=== PATIENT | female | born 1945 | race Caucasian/White ===

== ENCOUNTER → 2016-09-29 | Outpatient (CLI) | payer OTHER, MEDICARE | LOC: BHFA 14:30 | PROVIDERS: ATTEND Internal Medicine Cardiovascular Disease | DX: I48.91 Unspecified atrial fibrillation (principal) ==

== ENCOUNTER → 2017-02-18 | Outpatient (CLI) | payer OTHER, MEDICARE | LOC: FIMAGING 15:33 | PROVIDERS: ATTEND Family Medicine | DX: Z12.31 Encounter for screening mammogram for malignant neoplasm of breast (principal); Z80.3 Family history of malignant neoplasm of breast | CPT/HCPCS: G0202 ==

== ENCOUNTER → 2017-04-21 | Outpatient (CLI) | payer OTHER, MEDICARE | LOC: FIMAGING 14:05 | PROVIDERS: ATTEND Family Medicine | DX: Z13.820 Encounter for screening for osteoporosis (principal); M81.0 Age-related osteoporosis without current pathological fracture; Z79.01 Long term (current) use of anticoagulants ==

== ENCOUNTER 2017-10-11 04:16 | Observation (INO) | payer OTHER, MEDICARE ==
[2017-10-11] MEDS ORDERED: HYDROmorphONE/DILAUDID 1 MG/ML INJ IVP ONE (04:17)
[2017-10-11] MEDS ORDERED: NS 1,000 ML IV ONE (04:17)
[2017-10-11] MEDS ORDERED: ONDANSETRON 4 MG/2 ML VIAL IVP ONE (04:17)
--- NOTE | 2017-10-11 04:17 | EDPHY ---
H & P HPI/ROS: HPI CHIEF COMPLAINT: Abdominal pain, nausea, vomiting HISTORY OF PRESENT ILLNESS: Patient is a 71-year-old female she has a history of small-bowel obstructions, extensive abdominal surgery from a blood clot to her large intestines with most of her large intestines removed, hysterectomy, she presents emergency room with abdominal bloating and abdominal discomfort with associated nausea but no vomiting since around 630 last night. She states her entire abdomen is bloated. She feels like she may have another bowel obstruction. She has had decreased bowel movements with hard stool. She decided come the emergency room if she is having ongoing abdominal bloating and discomfort. Denies any fever, denies chest pain or shortness of breath. Main complaint abdominal pain, abdominal bloating and nausea. Past Medical History: SBO Past Surgical History: History of colectomy, hysterectomy, blood clot to intestines. Social History: Denies drugs alcohol tobacco Family History: Noncontributory ROS REVIEW OF SYSTEMS: A comprehensive 10 point review of systems is otherwise negative aside from elements mentioned in the history of present illness. Exam Constitutional triage nursing summary reviewed, vital signs reviewed, awake/ alert. Eyes normal conjunctivae and sclera, EOMI, PERRLA. HENT normal inspection, atraumatic, moist mucus membranes, no epistaxis, neck supple/ no meningismus, no raccoon eyes. Respiratory clear to auscultation bilaterally, normal breath sounds, no respiratory distress, no wheezing. Cardiovascular rate normal, regular rhythm, no murmur, no edema, distal pulses normal. Gastrointestinal hypoactive bowel sounds, diffuse tenderness on exam mainly on the right side worse than the left side, no peritoneal signs Genitourinary no CVA tenderness. Musculoskeletal no midline vertebral tenderness, full range of motion, no calf swelling, no tenderness of extremities, no meningismus, good pulses, neurovascularly intact. Skin recent skin peel, pink, warm, & dry, no rash, skin atraumatic. Neurologic awake, alert and oriented x 3, AAOx3, moves all 4 extremities equally, motor intact, sensory intact, CN II-XII intact, normal cerebellar, normal vision, normal speech. Psychiatric normal mood/affect. Heme/Lymph/Immune no lymphadenopathy. Differential Diagnosis: Differential diagnosis includes but is not limited to and in no particular order: Bowel obstruction, appendicitis, gallbladder disease, diverticulitis, colitis, enteritis, perforated viscus, gastritis, GERD , esophagitis, urinary tract infection, pyelonephritis, kidney stones Medical Decision Making: Plan for this patient IV establishment IV fluid bolus , Zofran for nausea, Dilaudid for pain control, KUB initially to rule out abnormal bowel gas pattern, will proceed with CT scan abdomen pelvis if the KUB is not diagnostic, check basic blood work including lactic acid. And re- evaluate. Re-evaluation: KUB reviewed. No evidence of bowel gas obstruction pattern. Significant stool burden seen. Given the abdominal pain will proceed with CT scan abdomen pelvis with IV contrast rule out acute a bowel obstruction or appendicitis. 0541: CT scan abdomen pelvis with IV contrast called to me by Dr. Smith this shows small bowel obstruction with dilated loops of small bowel in the right flank. This is similar to her CT scan seen back in April of 2016. However less pronounced. I have consult Dr. Núñez for evaluation of this small-bowel obstruction. And Admission. Source: Patient - Medical/Surgical History Hx Asthma: No Hx Chronic Respiratory Disease: No Hx Diabetes: No Hx Cardiac Disease: No Hx Renal Disease: No Hx Cirrhosis: No Hx Alcoholism: No Hx HIV/AIDS: No Hx Splenectomy or Spleen Trauma: No Other PMH: Colectomy, hysterectomy, blood clot to large intestine ro 60% removed - Social History Smoking Status: Never smoked Constitutional: Initial Vital Signs Temperature (C) 36.7 C 10/11/17 04:19 Heart Rate 60 10/11/17 04:19 Respiratory Rate 16 10/11/17 04:19 Blood Pressure 100/45 L 10/11/17 04:19 O2 Sat (%) 96 10/11/17 04:19 O2 Delivery Mode Nasal Cannula O2 (L/minute) 2 Allergies/Adverse Reactions: No Known Allergies Allergy (Unverified 05/28/16 20:40) Home Medications: Medication Instructions Recorded Apixaban [Eliquis] 2.5 mg PO BID 10/13/15 Ezetimibe/Simvastatin [Vytorin 1 each PO HS 10/13/15 10-40 mg Tablet] FLUoxetine [Prozac 20 MG (*)] 20 mg PO DAILY 10/13/15 buPROPion XL [Wellbutrin Xl] 300 mg PO DAILY 10/13/15 Cyanocobalamin [Vitamin B12 (*)] 1,000 mcg PO DAILY 05/29/16 [employer]pper Thyroid 90mg 1 each PO DAILY 05/29/16 [place]-3 Fatty Acids [Fish Oil 1000 2,000 mg PO DAILY 05/29/16 mg (*)] Medical Decision Making - Data Points Laboratory Results: Laboratory Results 10/11/17 04:40 10/11/17 04:40 10/11/17 10/11/17 10/11/17 04:40 04:40 04:40 WBC 7.31 10^3/uL 10^3/uL (3.80-9.50) RBC 4.44 10^6/uL 10^6/uL (4.18-5.33) Hgb 13.6 g/dL g/dL (12.6-16.3) Hct 41.4 % % (38.0-47.0) MCV 93.2 fL fL (81.5-99.8) MCH 30.6 pg pg (27.9-34.1) MCHC 32.9 g/dL g/dL (32.4-36.7) RDW 13.6 % % (11.5-15.2) Plt Count 261 10^3/uL 10^3/uL (150-400) MPV 11.4 fL fL (8.7-11.7) Neut % (Auto) 63.5 % % (39.3-74.2) Lymph % (Auto) 26.4 % % (15.0-45.0) [place] % (Auto) 6.6 % % (4.5-13.0) Eos % (Auto) 2.3 % % (0.6-7.6) Baso % (Auto) 0.8 % % (0.3-1.7) Nucleat RBC Rel Count 0.0 % % (0.0-0.2) Absolute Neuts (auto) 4.64 10^3/uL 10^3/uL (1.70-6.50) Absolute Lymphs (auto) 1.93 10^3/uL 10^3/uL (1.00-3.00) Absolute Monos (auto) 0.48 10^3/uL 10^3/uL (0.30-0.80) Absolute Eos (auto) 0.17 10^3/uL 10^3/uL (0.03-0.40) Absolute Basos (auto) 0.06 10^3/uL 10^3/uL (0.02-0.10) Absolute Nucleated RBC 0.00 10^3/uL 10^3/uL (0-0.01) Immature Gran % 0.4 % % (0.0-1.1) Immature Gran # 0.03 10^3/uL 10^3/uL (0.00-0.10) PT 13.0 SEC SEC (12.0-15.0) INR 0.96 (0.83-1.16) APTT 27.3 SEC SEC (23.0-38.0) VBG Lactic Acid Sodium 140 mEq/L mEq/L (135-145) Potassium 4.1 mEq/L mEq/L (3.5-5.2) Chloride 102 mEq/L mEq/L (97-110) Carbon Dioxide 27 mEq/l mEq/l (22-31) Anion Gap 11 mEq/L mEq/L (8-16) BUN 24 mg/dL H mg/dL (7-23) Creatinine 0.9 mg/dL mg/dL (0.6-1.0) Estimated GFR > 60 Glucose 111 mg/dL H mg/dL (70-100) Calcium 9.4 mg/dL mg/dL (8.5-10.4) Total Bilirubin 0.3 mg/dL mg/dL (0.1-1.4) Conjugated Bilirubin 0.2 mg/dL mg/dL (0.0-0.5) Unconjugated Bilirubin 0.1 mg/dL mg/dL (0.0-1.1) AST 28 IU/L IU/L (14-46) ALT 42 IU/L IU/L (9-52) Alkaline Phosphatase 55 IU/L IU/L (38-126) Total Protein 6.5 g/dL g/dL (6.3-8.2) Albumin 4.0 g/dL g/dL (3.5-5.0) Lipase 66 IU/L IU/L (23-300) 10/11/17 04:40 WBC RBC Hgb Hct MCV MCH MCHC RDW Plt Count MPV Neut % (Auto) Lymph % (Auto) [place] % (Auto) Eos % (Auto) Baso % (Auto) Nucleat RBC Rel Count Absolute Neuts (auto) Absolute Lymphs (auto) Absolute Monos (auto) Absolute Eos (auto) Absolute Basos (auto) Absolute Nucleated RBC Immature Gran % Immature Gran # PT INR APTT VBG Lactic Acid 1.0 mmol/L mmol/L (0.7-2.1) Sodium Potassium Chloride Carbon Dioxide Anion Gap BUN Creatinine Estimated GFR Glucose Calcium Total Bilirubin Conjugated Bilirubin Unconjugated Bilirubin AST ALT Alkaline Phosphatase Total Protein Albumin Lipase Medications Given: Discontinued Medications Hydromorphone HCl (Dilaudid) 0.5 mg IVP EDNOW ONE Stop: 10/11/17 04:18 Last Admin: 10/11/17 04:47 Dose: 0.5 mg Sodium Chloride (Ns) 1,000 mls @ 0 mls/hr IV EDNOW ONE; Wide Open PRN Reason: Protocol Stop: 10/11/17 04:18 Last Admin: 10/11/17 04:39 Dose: 1,000 mls Ondansetron HCl (Zofran) 4 mg IVP EDNOW ONE Stop: 10/11/17 04:18 Last Admin: 10/11/17 04:47 Dose: 4 mg Departure - Departure Disposition: [facility] Inpatient Acute Clinical Impression: Small bowel obstruction Condition: Fair Referrals: Patient,NotPresent [Primary Care Provider] - As per Instructions
[2017-10-11 04:46] LABS: PLATELET COUNT 261 10^3/uL (150-400)
[2017-10-11 04:54] LABS: INR 0.96 (0.83-1.16)
[2017-10-11] MEDS ORDERED: IOPAMIDOL (ISOVUE-300) 100 ML BTL ONE (05:13)
[2017-10-11] MEDS ORDERED: LIDOCAINE 2% JELLY 20 ML (UROJECT) UR ONE (06:19)
[2017-10-11] MEDS ORDERED: BENZOCAINE UNIT DOSE SPRAY HURRICAINE MM ONE (06:20)
--- NOTE | 2017-10-11 08:27 | GHP ---
[f rep st] HISTORY AND PHYSICAL DATE OF ADMISSION: 10/11/2017 ADMITTING DIAGNOSIS: Small bowel obstruction. HISTORY: The patient is a 71-year-old white female, who was in her usual state of good health until February of 2015, when she had the onset of severe abdominal pain. She was treated by Dr. Vitaly Canela of [facility]. 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 Ten days later because of a leak, she had to have a revision. She was seen at this hospital in April of 2016 and in [facility] in April of 2017 for small bowel obstructions which did resolve in each instance with conservative non-operative therapy. Her current episode started yesterday. She was complaining of bloating during the day. By 6 p.m., it became markedly worse after dinner of cauliflower, salmon, and salad. She was dramatically worse at 3 a.m. and presented to the hospital. Usually, she has a rapid transit because of the ascending and transverse colon resection, but recently her stool has been hard (not soft). Note she does take a thyroid supplement. Prior abdominal surgery has included a ELIANE with a right oophorectomy at age 37 and in 2014 her left ovary was removed as well. SOCIAL HISTORY: She does not smoke. She drinks approximately 1 glass of wine per week. MEDICATIONS: Include Eliquis 2.5 mg twice a day. She takes Vytorin 10/40 a day as ezetimibe/simvastatin. She takes Prozac 20 mg a day, Wellbutrin 300 mg a day, Prilosec OTC 20 mg daily, and a thyroid supplement (ZYGLO INSPECTOR 90). She also takes a multivitamin, fish oil, iron supplement, which the iron supplement has been taken sporadically. She also takes vitamin B12 1000 mcg daily. PAST SURGICAL HISTORY: Other surgeries include a left cataract extraction and recent laser treatment of her facial skin. PAST MEDICAL HISTORY: There is no history of rheumatic fever, tuberculosis, or hepatitis. She has had blood transfusions. REVIEW OF SYSTEMS: She does wear lenses for visual correction. She still aggressively exercises. She has right lower crowns. She has heartburn. She did not take her Prilosec. 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 She is also thought to have celiac disease and lactose intolerance. No limitations on her activities. She was seen in the ER. There is a CAT scan, which shows a large amount of stool in the residual colonic segment. There also is a loop of distended small bowel in the right abdomen. PHYSICAL EXAMINATION: GENERAL: She is awake, alert, quite pleasant and communicative. NECK: There is no thyroid enlargement. There are no carotid bruits. HEENT: Her face has an erythema to it from the laser treatment. LYMPH NODES: There is no cervical, supraclavicular, axillary, or inguinal lymphadenopathy. BACK: Unremarkable. RESPIRATORY: Her lungs are clear to auscultation. CARDIAC EXAM: Shows S1, S2 to be normal. ABDOMEN: Her abdomen is minimally distended. She is slightly tender with cough in the right abdomen. To palpation, her abdomen is really nontender, except for the right mid abdomen, which is slightly tender to palpation. Certainly there are no high -pitched bowel sounds at this time. LABORATORY DATA: Her white blood cell count is 7.3, hematocrit is 41, platelets 261. INR is 0.96. BUN is 24, creatinine is 0.9. Lipase is 66. NG tube is in place and functioning. PLAN: She will be admitted for NG decompression. I will use enemas to clean out the distal colon. Serial flat and upright examinations and physical re- examination to be performed to hospital nurse the evolution of her small bowel obstruction. /[id number]/MODL MTDD
[2017-10-11] MEDS: LR 1,000 ML IV SCH ×2 (08:40→18:33)
[2017-10-11] MEDS: HYDROmorphONE/DILAUDID 1 MG/ML INJ IVP PRN ×4 (08:40→20:57)
[2017-10-11] MEDS: LEVOTHYROXINE 100 MCG/5 ML SYR IVP SCH (11:24)
[2017-10-11] MEDS: PANTOPRAZOLE SODIUM 40 MG VIAL IVP SCH ×2 (11:24→20:48)
[2017-10-11] MEDS: ONDANSETRON 4 MG/2 ML VIAL IVP PRN ×2 (11:41→17:43)
[2017-10-11 18:23] LABS: PLATELET COUNT 201 10^3/uL (150-400)
[2017-10-11 19:54] VITALS: RESP 16
[2017-10-12] MEDS: HYDROmorphONE/DILAUDID 1 MG/ML INJ IVP PRN ×2 (00:32→05:02)
[2017-10-12] MEDS: ONDANSETRON 4 MG/2 ML VIAL IVP PRN ×3 (00:33→09:21)
[2017-10-12] MEDS: LR 1,000 ML IV SCH (04:51)
[2017-10-12 06:38] LABS: PLATELET COUNT 193 10^3/uL (150-400)
[2017-10-12] MEDS ORDERED: buPROPion XL 150 MG TAB PO SCH (09:00)
[2017-10-12] MEDS ORDERED: FLUoxetine 20 MG CAP PO SCH (09:00)
--- NOTE | 2017-10-12 09:17 | SOAPPROG ---
SOAP Progress Note Assessment/Plan: Assessment: about 36 hours s/p last Eloquis pill. no emergent indication for surgery. dr brizuela has ordered repeiat films today. will await spontaneous resumption of flatus and stools prior to removing ng. Plan: 10/12/17 09:16 Subjective: feeks kess oabn than yeserday. some stools after enemas, no spontaneous gas or stools. Objective: abd not very distended, minimilllay tender Vital Signs Temp Pulse Resp BP Pulse Ox 36.9 C 60 16 100/54 L 94 10/12/17 07:16 10/12/17 07:16 10/12/17 07:16 10/12/17 07:16 10/12/17 07:16 Laboratory Results 10/12/17 06:01 10/12/17 06:01 10/11/17 10/12/17 10/13/17 05:59 05:59 05:59 Intake Total 1992 Output Total 1150 Balance 842 PT 13.0 SEC (12.0-15.0) 10/11/17 04:40 INR 0.96 (0.83-1.16) 10/11/17 04:40 ICD10 Worksheet Patient Problems: Problems Problem Status Onset Small bowel obstruction Acute
[2017-10-12] MEDS: PANTOPRAZOLE SODIUM 40 MG VIAL IVP SCH (09:21)
--- NOTE | 2017-10-12 10:48 | ASMTCASEMG ---
Living Arrangements What is your living Answers: With Spouse arrangement? Who do you live with? Type Of Residence What kind of residence do Answers: House you live in? Discharge Plan Comments Coordination Status Comments Notes: Pt is a 71 y/o woman admitted for a small bowel obstruction. Pt will most likely d/c home without any needs when medically stable. No therapies ordered at this time. CM available for changes. Plan: Independent Date Signed: 10/12/2017 10:48 AM Electronically Signed By:SUBHASH Hernandez
[2017-10-12] MEDS: LEVOTHYROXINE 100 MCG/5 ML SYR IVP SCH (10:49)
[2017-10-12 10:57] VITALS: BP 100/52; PULSE 66; TEMP 98.1; O2SAT 93
--- NOTE | 2017-10-12 21:10 | GDS ---
[f rep st] DISCHARGE SUMMARY PRESENT ILLNESS: The patient was admitted on 10/11/2017 with partial small bowel obstruction. She r esolved, and on the subsequent day had a bowel movement. NG was removed. She is tolerating a clear liquid diet. Abdomen is soft, benign. She is discharged home. DISPOSITION: Follow up with Dr. An for return of symptoms. /[id number]/MODL
== END 2017-10-12 16:55 | disposition home or self-care (01) ==
LOC: INTOOBSV 06:14 → F3E 07:38
PROVIDERS: ADMIT Surgery; ATTEND Surgery
DX: K56.690 Other partial intestinal obstruction (principal); E86.9 Volume depletion, unspecified; E03.9 Hypothyroidism, unspecified; Z79.01 Long term (current) use of anticoagulants; Z90.49 Acquired absence of other specified parts of digestive tract; Z90.710 Acquired absence of both cervix and uterus; Z90.722 Acquired absence of ovaries, bilateral
CPT/HCPCS: 74018; 74019; 74177; 96361; 96374; 96375; 99285; G0378; J1170; J2405; Q9967

== ENCOUNTER → 2018-02-21 | Outpatient (CLI) | payer OTHER, MEDICARE | LOC: FIMAGING 13:24 | PROVIDERS: ATTEND Family Medicine | DX: Z12.31 Encounter for screening mammogram for malignant neoplasm of breast (principal); Z80.3 Family history of malignant neoplasm of breast ==

== ENCOUNTER 2018-02-28 21:31 | Inpatient (IN) | payer OTHER, MEDICARE ==
--- NOTE | 2018-02-28 21:53 | EDPHY ---
H & P Stated Complaint: GI BLOCKAGE/ W/HX Time Seen by Provider: 02/28/18 21:43 HPI/ROS: CHIEF COMPLAINT: "I think I have bowel obstruction" HISTORY OF PRESENT ILLNESS: 72-year-old female history of recurrent bowel obstruction secondary to multiple abdominal surgeries, history of colonic resection secondary to ball ischemic process in her right ascending colon, arrives via private vehicle with complaining of abdominal pain, distension, nausea, vomiting since this morning. She had 2 small bowel movement this morning described as normal. No appetite. REVIEW OF SYSTEMS: A ten point review of systems was performed and is negative with the exception of the items mentioned in the HPI PAST MEDICAL & SURGICAL HISTORY: Recurrent bowel obstruction. Oophorectomy. Colonic resection. Atrial fibrillation, anticoagulated with Eliquis. SOCIAL HISTORY: Nonsmoker . FAMILY HISTORY: No pertinent family history PHYSICAL EXAM (Prior to examination, patient consented to physical exam, hands were washed and my usual and customary physical exam procedures followed) 1) GENERAL: Well-developed, well-nourished, alert and oriented. Appears to be in no acute distress. 2) HEAD: Normocephalic, atraumatic 3) HEENT: Pupils equal, round, reactive to light bilaterally. Sclera anicteric. 4) NECK: Full range of motion, no meningeal signs. 5) LUNGS: Clear auscultation bilaterally, no wheezes, no rhonchi, no retractions. 6) HEART: Regular rate and rhythm, no murmur, no heave, no gallop. 7) ABDOMEN: No guarding, tender to palpation right lower quadrant, negative Damon's, negative Rovsing's, negative peritoneal sign, 8) MUSCULOSKELETAL: Moving all extremities, no focal areas of tenderness, no obvious trauma. No peripheral edema or discoloration. 9) BACK: No CVA tenderness, no midline vertebral tenderness, no fluctuance, no step-off, no obvious trauma, no visual or palpable abnormality. 10) SKIN: No rash, no petechiae. 11) Psychiatric: Patient is oriented X 3, there is no agitation. DIFFERENTIAL DIAGNOSIS: My differential diagnosis includes, but is not limited to, acute appendicitis, acute cholecystitis, bowel obstruction, acute pancreatitis, gastritis and urinary tract infection. The patient understands that this diagnosis is provisional and can never be 100% accurate. This is a partial list of diagnoses considered. These considerations are based on history , physical exam, past history and reassessment. - Personal History Current Tetanus Diphtheria and Acellular Pertussis (TDAP): Yes - Medical/Surgical History Hx Asthma: No Hx Chronic Respiratory Disease: No Hx Diabetes: No Hx Cardiac Disease: No Hx Renal Disease: No Hx Cirrhosis: No Hx Alcoholism: No Hx HIV/AIDS: No Hx Splenectomy or Spleen Trauma: No Other PMH: Colectomy, hysterectomy, blood clot to large intestine ro 60% removed , A.FIB - Social History Smoking Status: Never smoked Constitutional: Initial Vital Signs Temperature (C) 36.6 C 02/28/18 21:37 Heart Rate 60 02/28/18 21:37 Respiratory Rate 16 02/28/18 21:37 Blood Pressure 107/70 02/28/18 21:37 O2 Sat (%) 93 02/28/18 21:37 O2 Delivery Mode Room Air Allergies/Adverse Reactions: No Known Allergies Allergy (Verified 02/28/18 21:37) Home Medications: Medication Instructions Recorded Apixaban [Eliquis] 2.5 mg PO BID 10/13/15 FLUoxetine [Prozac 20 MG (*)] 20 mg PO DAILY 10/13/15 buPROPion XL [Wellbutrin 150mg XL] 300 mg PO DAILY 10/13/15 [employer] Thyroid 90mg 1 each PO DAILY 05/29/16 [place]-3 Fatty Acids [Fish Oil 1000 2,000 mg PO DAILY 05/29/16 mg (*)] Alendronate Sodium [Fosamax 70 MG 70 mg PO SA@0700 10/11/17 (*)] Ascorbic Acid [Vitamin C 500 mg 500 mg PO DAILY 10/11/17 (*)] Ezetimibe [Zetia 10 MG (*)] 10 mg PO HS 10/11/17 Ferrous Sulfate [Ferrous Sulf 325 325 mg PO DAILY 10/11/17 MG (*)] Omeprazole [Prilosec 20 mg] 20 mg PO DAILY 10/11/17 Simvastatin [Zocor] 40 mg PO HS 10/11/17 Medical Decision Making - Diagnostics Imaging Results: Imaging Impressions Abdomen CT 02/28/18 21:53 Impression: 1. Findings compatible with small bowel obstruction with dilated small bowel loops in the right lower quadrant similar to the prior study. 2. Postoperative changes are noted. 3. Prominent sigmoid diverticulosis without diverticulitis. 4. See above report for additional findings. Results called and discussed with Marry GARCIA on 02/28/2018 at 22:38. ED Course/Re-evaluation: 9:52 p.m.: I reviewed the patient's old medical records. She is tender to palpation McBurney's point. She has a history of recurrent bowel obstruction. Will obtain laboratory studies and CT imaging of the abdomen. She remains NPO since 6:00 a.m. Today. 10:47 p.m.: Consultation with Dr. Abdoulaye Edwards General surgery who will admit patient recommended nasogastric tube. I saw this patient independently based on established practice protocols. Care of patient under supervision of secondary supervising physician Dr Sellers with whom I discussed case. - Data Points Laboratory Results: Laboratory Results 02/28/18 21:54 02/28/18 21:54 02/28/18 02/28/18 21:54 21:54 WBC 11.61 10^3/uL H 10^3/uL (3.80-9.50) RBC 4.92 10^6/uL 10^6/uL (4.18-5.33) Hgb 15.0 g/dL g/dL (12.6-16.3) Hct 45.3 % % (38.0-47.0) MCV 92.1 fL fL (81.5-99.8) MCH 30.5 pg pg (27.9-34.1) MCHC 33.1 g/dL g/dL (32.4-36.7) RDW 13.5 % % (11.5-15.2) Plt Count 257 10^3/uL 10^3/uL (150-400) MPV 11.8 fL H fL (8.7-11.7) Neut % (Auto) 79.2 % H % (39.3-74.2) Lymph % (Auto) 13.8 % L % (15.0-45.0) [place] % (Auto) 5.7 % % (4.5-13.0) Eos % (Auto) 0.5 % L % (0.6-7.6) Baso % (Auto) 0.6 % % (0.3-1.7) Nucleat RBC Rel Count 0.0 % % (0.0-0.2) Absolute Neuts (auto) 9.20 10^3/uL H 10^3/uL (1.70-6.50) Absolute Lymphs (auto) 1.60 10^3/uL 10^3/uL (1.00-3.00) Absolute Monos (auto) 0.66 10^3/uL 10^3/uL (0.30-0.80) Absolute Eos (auto) 0.06 10^3/uL 10^3/uL (0.03-0.40) Absolute Basos (auto) 0.07 10^3/uL 10^3/uL (0.02-0.10) Absolute Nucleated RBC 0.00 10^3/uL 10^3/uL (0-0.01) Immature Gran % 0.2 % % (0.0-1.1) Immature Gran # 0.02 10^3/uL 10^3/uL (0.00-0.10) Sodium 140 mEq/L mEq/L (135-145) Potassium 4.1 mEq/L mEq/L (3.3-5.0) Chloride 105 mEq/L mEq/L (97-110) Carbon Dioxide 25 mEq/l mEq/l (22-31) Anion Gap 10 mEq/L mEq/L (8-16) BUN 24 mg/dL H mg/dL (7-23) Creatinine 1.0 mg/dL mg/dL (0.6-1.0) Estimated GFR 55 Glucose 114 mg/dL H mg/dL (70-100) Calcium 9.8 mg/dL mg/dL (8.5-10.4) Total Bilirubin 0.7 mg/dL mg/dL (0.1-1.4) Conjugated Bilirubin 0.3 mg/dL mg/dL (0.0-0.5) Unconjugated Bilirubin 0.4 mg/dL mg/dL (0.0-1.1) AST 24 IU/L IU/L (14-46) ALT 41 IU/L IU/L (9-52) Alkaline Phosphatase 68 IU/L IU/L (38-126) Total Protein 6.6 g/dL g/dL (6.3-8.2) Albumin 4.0 g/dL g/dL (3.5-5.0) Lipase 28 IU/L IU/L (23-300) Medications Given: Discontinued Medications Sodium Chloride (Ns) 1,000 mls @ 0 mls/hr IV ONCE ONE PRN Reason: Wide Open Stop: 02/28/18 22:25 Last Admin: 02/28/18 22:27 Dose: 1,000 mls Morphine Sulfate (Morphine) 4 mg IVP EDNOW ONE Stop: 02/28/18 22:25 Last Admin: 02/28/18 22:27 Dose: 4 mg Ondansetron HCl (Zofran) 4 mg IVP EDNOW ONE Stop: 02/28/18 22:38 Last Admin: 02/28/18 22:38 Dose: 4 mg Departure - Departure Disposition: [facility] Inpatient Acute Clinical Impression: Small bowel obstruction, History of atrial fibrillation Condition: Fair Referrals: PETE MOURA [Primary Care Provider] - As per Instructions
[2018-02-28] MEDS ORDERED: IOPAMIDOL (ISOVUE-300) 100 ML BTL ONE (22:04)
[2018-02-28 22:24] LABS: PLATELET COUNT 257 10^3/uL (150-400)
[2018-02-28] MEDS ORDERED: NS 1,000 ML IV ONE (22:24)
[2018-02-28] MEDS ORDERED: ONDANSETRON 4 MG/2 ML VIAL IVP ONE (22:37)
[2018-02-28] MEDS ORDERED: ONDANSETRON 4 MG/2 ML VIAL ONE (22:38)
[2018-02-28] MEDS ORDERED: BENZOCAINE UNIT DOSE SPRAY HURRICAINE MM ONE (22:49)
--- NOTE | 2018-02-28 22:54 | CPEKG ---
Heart Rate: 60 RR Interval: 1000 P-R Interval: 184 QRSD Interval: 84 QT Interval: 452 QTC Interval: 452 P [place]: 56 QRS [place]: -19 T Wave [place]: -3 EKG Severity - BORDERLINE ECG - EKG Impression: SINUS RHYTHM EKG Impression: BORDERLINE LEFT AXIS DEVIATION EKG Impression: CONSIDER ANTERIOR INFARCT Electronically Signed By: Darwin Marroquin 02-Mar-2018 07:42:00
--- NOTE | 2018-02-28 23:44 | SOAPPROG ---
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
[2018-03-01] MEDS: ONDANSETRON 4 MG/2 ML VIAL IVP PRN ×5 (00:24→17:18)
[2018-03-01] MEDS: HYDROmorphONE/DILAUDID 1 MG/ML INJ IVP PRN ×6 (00:24→23:19)
[2018-03-01] MEDS: D5W 1/2 NS W/ 20 KCl/L 1,000 ML IV SCH ×2 (00:25→17:18)
[2018-03-01 01:36] LABS: INR 1.02 (0.83-1.16); PROTIME(PATIENT) 13.6 SEC (12.0-15.0)
[2018-03-01 05:22] LABS: PLATELET COUNT 211 10^3/uL (150-400)
--- NOTE | 2018-03-01 10:13 | SOAPPROG ---
SOAP Progress Note Assessment/Plan: Assessment/Plan: 72 Y F c recurrent SBO. Seen and examined with Dr. Edwards. Nina Hernandez acting as scribe for Dr. Edwards: Abdomen is softer. Passing gas. Thick NGT output. Await AXR this am. Continue conservative management and supportive care. Surgery still possibly, especially given recurrent nature of SBO. 03/01/18 10:11 Objective: Vital Signs Temp Pulse Resp BP Pulse Ox 36.6 C 58 L 14 113/61 94 03/01/18 07:29 03/01/18 07:29 03/01/18 07:29 03/01/18 07:29 03/01/18 07:29 Laboratory Results 03/01/18 04:32 03/01/18 04:32 02/28/18 03/01/18 03/02/18 05:59 05:59 05:59 Intake Total 1750 Output Total 100 Balance 1650 PT 13.6 SEC (12.0-15.0) 02/28/18 21:54 INR 1.02 (0.83-1.16) 02/28/18 21:54 ICD10 Worksheet Patient Problems: Problems Problem Status Onset History of atrial fibrillation Acute Small bowel obstruction Acute
--- NOTE | 2018-03-01 13:54 | PDMN ---
Medical Necessity Medical necessity: change to IP; los>2mn for recurrent SBO; requires continued NG, IVF, supportive care, and potential surgery; hx recurrent SBO s/p colectomy for colon infarction 3 years ago; per order and progress note 03/01/18
--- NOTE | 2018-03-01 16:13 | ASMTCMCOM ---
CM Note CM Note Notes: Chart reviewed. Patient admitted with SBO that has been recurrent in nature after colectomy. May require surgical intervention. Needs to be determined. CM to follow. Plan: TBD Date Signed: 03/01/2018 04:13 PM Electronically Signed By:Almaz Sandy RN
[2018-03-01] MEDS: NP THYROID 90 MG PO SCH (17:11)
[2018-03-01] MEDS: ACETAMINOPHEN 325 MG TAB PO PRN (17:18)
[2018-03-01] MEDS: FLUoxetine 20 MG CAP PO SCH (17:19)
[2018-03-01] MEDS: buPROPion XL 150 MG TAB PO SCH (17:19)
[2018-03-02] MEDS: HYDROmorphONE/DILAUDID 1 MG/ML INJ IVP PRN ×3 (02:09→09:48)
[2018-03-02] MEDS: D5W 1/2 NS W/ 20 KCl/L 1,000 ML IV SCH (02:50)
[2018-03-02] MEDS: ACETAMINOPHEN 325 MG TAB PO PRN (09:32)
[2018-03-02] MEDS: FLUoxetine 20 MG CAP PO SCH (09:32)
[2018-03-02] MEDS: buPROPion XL 150 MG TAB PO SCH (09:32)
[2018-03-02] MEDS: NP THYROID 90 MG PO SCH (09:37)
[2018-03-02 11:12] VITALS: BP 91/55
--- NOTE | 2018-03-02 11:54 | SOAPPROG ---
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/ + on ct admit for suction, ivs, obs abd soft, mildly tender rlq may benefit from laparoscopy since this is her 6th episode of sbo Plan:obs 02/28/18 23:41 03/02/18 11:52 MARKEDLY IMPROVED/LARGE BM TODAY/AFEBRILE/VITAL SIGNS STABLE ABDOMEN SOFT, LESS DISTENDED, POSITIVE BOWEL SOUNDS, NONTENDER CHEST CLEAR TOLERATING NG CLAMPED IMPRESSION: MUCH IMPROVED, POSSIBLY HOME TODAY Objective: Vital Signs Temp Pulse Resp BP Pulse Ox 36.8 C 53 L 16 91/55 L 87 L 03/02/18 11:11 03/02/18 11:11 03/02/18 11:11 03/02/18 11:11 03/02/18 11:11 03/01/18 03/02/18 03/03/18 05:59 05:59 05:59 Intake Total 1450 Output Total 1000 Balance 450 PT 13.6 SEC (12.0-15.0) 02/28/18 21:54 INR 1.02 (0.83-1.16) 02/28/18 21:54 ICD10 Worksheet Patient Problems: Problems Problem Status Onset History of atrial fibrillation Acute Small bowel obstruction Acute
--- NOTE | 2018-03-02 13:52 | ASMTCMCOM ---
CM Note CM Note Notes: CM spoke w/RN, anticipate pt will dc home with support of when medically stable. CM available for any changes. DC Plan: Independent Date Signed: 03/02/2018 01:51 PM Electronically Signed By:Kimberly Woods RN
--- NOTE | 2018-03-09 08:32 | GDS ---
[f rep st] DISCHARGE SUMMARY DISCHARGE DIAGNOSIS: 1. Recurrent small bowel obstruction. 2. History of right colon infarction, status post colectomy about 3 years ago. 3. History of atrial fibrillation, anticoagulated with Eliquis. PROCEDURES: None. CONSULTATIONS: None. SPECIAL TESTS: CT scan of the abdomen and pelvis upon admission was compatible with small obstructio n with dilated small bowel loops in the right lower quadrant. Please see report for details. HOSPITAL COURSE: Melissa is a very pleasant 72-year-old female with a history of colectomy for colo n infarction 3 years ago. She presented to the emergency department with abdominal pain, distention, nausea, and vomiting. This was similar to 2 prior episodes that she had in the last [address] scan confirmed bowel obstruction. She was admitted for care. Conservative care was started. She was made nothing by mouth. She was supported with IV fluids, anthony n medicines, and antiemetics. A nasogastric tube was placed. Her symptoms quickly resolved. Abdomi nal x-rays confirmed this. Her NG tube was clamped and eventually removed and her diet was advanced. DISCHARGE INSTRUCTIONS: Patient was discharged to home in stable condition with plans for outpatient followup with Dr. Edwards. At the time of discharge, it was planned to have an outpatient small-bowel follow-through and tentatively schedule surgery as this was her 3rd episode within 10 months. /[id number]/MODL
== END 2018-03-02 14:40 | disposition home or self-care (01) | DRG 390 ==
LOC: F3E 03-01 00:01 → OBSVTOIN 03-01 13:00
PROVIDERS: ADMIT Surgery; ATTEND Surgery
PROC: 0D9670Z Drainage of Stomach with Drainage Device, Via Natural or Artificial Opening (ICD-10-PCS; principal; 2018-02-28)
DX: K56.609 Unspecified intestinal obstruction, unspecified as to partial versus complete obstruction (principal); I48.91 Unspecified atrial fibrillation; Z79.01 Long term (current) use of anticoagulants
CPT/HCPCS: 82435-PO; 82565-PO; 82947-PO; 84132-PO; 84295-PO; 84520-PO; 85014-PO; 96374; J1170; J2270; J2405; Q9967

== ENCOUNTER → 2018-03-10 | Outpatient (CLI) | payer OTHER, MEDICARE | LOC: FIMAGING 08:30 | PROVIDERS: ATTEND Surgery | DX: Z09 Encounter for follow-up examination after completed treatment for conditions other than malignant neoplasm (principal); Z90.49 Acquired absence of other specified parts of digestive tract; Z87.19 Personal history of other diseases of the digestive system ==

== ENCOUNTER 2018-07-04 12:41 | Day surgery (SDC) | payer OTHER, MEDICARE ==
[2018-07-04] MEDS ORDERED: TRIAMCINOLONE ACETONIDE 200 MG/5 ML MDV IM ONE (14:11)
[2018-07-04] MEDS ORDERED: IOPAMIDOL (ISOVUE-M 300) 15 ML VIAL ONE (14:11)
[2018-07-04] MEDS ORDERED: FLUMAZENIL 0.5 MG/5 ML MDV IVP PRN (14:22)
[2018-07-04] MEDS ORDERED: NALOXONE HCL 0.4 MG/ML INJ IVP PRN (14:22)
[2018-07-04] MEDS ORDERED: fentaNYL 100 MCG/2 ML INJ IVP PRN (14:22)
[2018-07-04] MEDS ORDERED: MIDAZOLAM 2 MG/2 ML VIAL IVP PRN (14:22)
[2018-07-04] MEDS ORDERED: MIDAZOLAM 2 MG/2 ML VIAL ONE ×2 (14:27→14:28)
[2018-07-04] MEDS ORDERED: NALOXONE HCL 0.4 MG/ML INJ ONE (14:27)
[2018-07-04] MEDS ORDERED: FLUMAZENIL 0.5 MG/5 ML MDV IVP ONE (14:27)
[2018-07-04] MEDS ORDERED: fentaNYL 100 MCG/2 ML INJ ONE (14:28)
[2018-07-04] MEDS ORDERED: NS 1,000 ML IV SCH (14:30)
[2018-07-04] MEDS ORDERED: ONDANSETRON 4 MG/2 ML VIAL IVP PRN (16:10)
--- NOTE | 2018-07-04 16:11 | PDRADPRE ---
Radiology History & Physical Indication for procedure: back pain Home medications: FLUoxetine [Prozac 20 MG (*)] 20 mg PO DAILY 10/13/15 [Last Taken 07/04/18] buPROPion XL [Wellbutrin 150mg XL] 150 mg PO DAILY 10/13/15 [Last Taken 07/04/18 ] Complex Care Nurse Practitioner Thyroid 90mg 90 mg PO DAILY 05/29/16 [Last Taken 07/04/18] [place]-3 Fatty Acids [Fish Oil 1000 mg (*)] 2,000 mg PO DAILY 05/29/16 [Last Taken 07/03/18] Alendronate Sodium [Fosamax 70 MG (*)] 70 mg PO SA@0700 10/11/17 [Last Taken 11/14] Ascorbic Acid [Vitamin C 500 mg (*)] 500 mg PO DAILY 10/11/17 [Last Taken ] Ezetimibe [Zetia 10 MG (*)] 10 mg PO HS 10/11/17 [Last Taken 07/03/18] Ferrous Sulfate [Ferrous Sulf 325 MG (*)] 325 mg PO DAILY 10/11/17 [Last Taken 07/03/18] Omeprazole [Prilosec 20 mg] 20 mg PO DAILY 10/11/17 [Last Taken 07/04/18] Simvastatin [Zocor] 40 mg PO HS 10/11/17 [Last Taken 07/03/18] Eliquis 2.5 mg PO 06/28/18 [Last Taken 07/02/18 20:00] Allergies/Adverse Reactions: No Known Allergies Allergy (Verified 07/04/18 14:01) Mental status: A&Ox3
--- NOTE | 2018-07-04 16:11 | PDPROPOC ---
Sedation Plan of Care ASA Classification: ASA 2 Mallampati Score: Class 2 Mallampati Reference Image:
--- NOTE | 2018-07-04 16:11 | PDRADPN ---
Radiology Procedure Note Date of Procedure: 07/04/18 Radiologist: Ligia Franks Anesthesia: IV Sedation Pre-op Diagnosis: back pain Post-op Diagnosis: same Procedure: L4-L5 steroid injection Inf/Abcess present in the surg proc area at time of surgery?: No
[2018-07-04 17:23] VITALS: BP 127/72
== END 2018-07-04 17:17 | disposition home or self-care (01) ==
LOC: FIMAGING 12:41
PROVIDERS: ATTEND Orthopaedic Surgery
DX: M54.16 Radiculopathy, lumbar region (principal)
CPT/HCPCS: J2250; J2310; J3010; J3301; Q9967